=== PATIENT | female | born 1995 | race Caucasian/White ===

== ENCOUNTER 2016-08-15 12:39 | Emergency (ER) ==
[2016-08-15 12:46] VITALS: BP 144/68
[2016-08-15 13:11] LABS: URINE CULTURE PL NEEDED? NO; URINE SOURCE CLEAN CATCH
[2016-08-15 13:36] LABS: BILIRUBIN URINE NEGATIVE (NEGATIVE); BLOOD URINE 4+ (NEGATIVE); CLARITY CLEAR (CLEAR); COLOR YELLOW; GLUCOSE URINE NEGATIVE (NEGATIVE); LEUKOCYTES URINE NEGATIVE (NEGATIVE); NITRITE URINE NEGATIVE (NEGATIVE); PROTEIN URINE NEGATIVE (NEGATIVE); SP GRAVITY URINE 1.005; UROBILINOGEN URINE NORMAL
[2016-08-15 13:37] LABS: URINE EPITHELIAL CELLS >10 /HPF (<10); URINE RBC TNTC /HPF (<10)
--- NOTE | 2016-08-15 13:41 | PROVIDER DOCUMENTATION ---
HPI-Female /OB/Breast - General Source: reports: patient - History of Present Illness-Female /OB Does patient report she is ?: No Location of complaint: reports: LLQ Radiation: reports: none Severity in ED: reports: moderate Onset/Duration: reports: abrupt, 4-6 hours ago Timing: reports: still present Context/Activities at Onset: reports: none Vaginal Symptoms: reports: no symptoms Vaginal Bleeding Amount: None Urinary Symptoms: reports: hematuria Modifying Factors: worse with: palpation Associated Symptoms: reports: denies symptoms Similar Symptoms Previously?: Yes (Pt has seen hematuria before. LLQ pain is different from previous episodes ) Recently seen or treated by another doctor?: Yes (u/s to check for stones 2 weeks ago) <Davida Mak - Last Filed: 08/15/16 14:05> <Pradeep Barr - Last Filed: 08/15/16 14:11> - General Chief Complaint: Flank Pain Stated Complaint: BLOOD IN URINE Time Seen by Provider: 08/15/16 13:07 Allergies/Adverse Reactions: Patient Allergies Allergy/AdvReac Type Severity Reaction Status Date / Time No Known Allergies Allergy Verified 08/15/16 12:46 Home Medications: Home Medication List Medication Instructions Recorded Confirmed Last Taken Type Hydrocodone/APAP 5 mg/325 mg 1 - 2 tab PO Q6H PRN PRN #18 tablet 08/15/16 Unknown Rx [[place]-5] Promethazine [Phenergan] 1 - 2 tab PO Q6H PRN PRN #18 tablet 08/15/16 Unknown Rx - History of Present Illness-Female /OB Nature of Presenting Problem: 20 yo WF presents to ED with cc of LLQ pain and tenderness and hematuria since 1030 this morning. Pt has hx of chronic kidney stones and lithotripsy. Pt reports she had an ultrasound 2 weeks ago to check for stones as a routine procedure, and it was clear. Pt reports she is currently in the middle of her menstrual cycle. She denies nausea, vomiting, diarrhea, and constipation. She states that this is different from kidney stone episodes in that her pain is in the front instead of her back but that she is concerned it may be a stone. Upon arrival to ED, pt is alert and in no apparent distress. (Davida Mak) Review of Systems - Adult - REVIEW OF SYSTEMS - ADULT Constitutional: reports: no symptoms reported. denies: chills, fever Eyes: reports: no symptoms reported. denies: blurred vision, double vision Ears, Nose, Mouth & Throat: reports: no symptoms reported. denies: ear discharge, epistaxis Cardiovascular: reports: no symptoms reported. denies: edema, palpitations Respiratory: reports: no symptoms reported. denies: cough, shortness of breath Gastrointestinal: reports: abdominal pain (LLQ) Genitourinary: reports: hematuria (starting 1030 this morning). denies: flank pain Musculoskeletal: reports: no symptoms reported. denies: bone pain, joint pain Integumentary: reports: no symptoms reported. denies: hives, itching Neurological: reports: no symptoms reported. denies: dizziness/vertigo, numbness Psychiatric: reports: no symptoms reported. denies: anxiety, alcohol/drug dependence Endocrine: reports: no symptoms reported. denies: cold intolerance, heat intolerance Hematologic/Lymphatic: reports: no symptoms reported. denies: blood clots, lymphedema Allergic/Immunologic: reports: no symptoms reported. denies: allergic reactions , food allergy All Other Systems: Reviewed and Negative <Davida Mak - Last Filed: 08/15/16 14:05> Past History - Adult - PAST MEDICAL HISTORY-ADULT Review of Records: reports: Old Records Reviewed, Nursing Assessment Review, Medications Reviewed Genitourinary: reports: kidney stones - PRIOR SURGERIES/PROCEDURES Surgical/Procedure History: reports: other (lithotripsy) - IMMUNIZATION STATUS Childhood Immunizations: See Nurse Assessment Flu Vaccine: See Nurse Assessment <Davida Mak - Last Filed: 08/15/16 14:05> Physical Exam-General - PHYSICAL EXAM-ADULT Initial Vital Signs Reviewed: Yes - CONSTITUTIONAL General Appearance: appears well, alert, no apparent distress - EYES Eyes: PERRL/EOMI, pink conjunctivae - HEAD, EARS, NOSE, MOUTH & THROAT HENMT: normocephalic/atraumatic, moist mucous membranes - NECK Neck: non-tender, full range of motion, supple - RESPIRATORY Respiratory: chest non-tender, lungs clear, normal breath sounds - CARDIOVASCULAR Cardiovascular: normal peripheral pulses, regular rate, rhythm - GASTROINTESTINAL (ABDOMEN) Abdominal Exam: normal bowel sounds, soft, tenderness (LLQ) - GENITOURINARY Female Genitalia/Pelvic Exam: deferred Rectal Exam: deferred Hemoccult Exam: deferred - LYMPHATIC Lymphatic: no adenopathy - MUSCULOSKELETAL Back Exam: no vertebral tenderness, CVA tenderness (L side) Extremity: normal range of motion, non-tender, normal gait - SKIN Integumentary: normal color, normal turgor, warm/dry - NEUROLOGIC Neurologic: grossly normal, no motor/sensory deficits - PSYCHIATRIC Psych/Mental Status: normal mood/affect, normal thought content, normal thought process, oriented x 3 <Davida Mak - Last Filed: 08/15/16 14:05> Progress - CT/MRI 1 CT Study: Renal Stone Impression: Abnormal CT Results: 3 mm stone in proximal L ureter <Davida Mak - Last Filed: 08/15/16 14:05> <Prdaeep Barr - Last Filed: 08/15/16 14:11> - PLAN OF CARE/RESULTS Progress/Plan/Lab Results: Vital Signs - 24 hr 08/15/16 12:44 Temperature 97.8 F Pulse Rate 69 Respiratory 18 Rate Blood Pressure 144/68 O2 Sat by Pulse 100 Oximetry Orders Category Date Time Status RENAL STONE SEARCH [CT] Stat Exams 08/15/16 13:00 Taken TEST-URINE [PREG] Stat Lab 08/15/16 12:[address] W/POSS RFLX CULT [URINALYSIS] Stat Lab 08/15/16 12:50 Completed Laboratory Tests 08/15/16 08/15/16 12:50 12:50 Urine Source CLEAN CATCH Urine Color YELLOW Urine Clarity CLEAR Urine pH 8.0 Ur Specific [place] 1.005 Urine Protein NEGATIVE Urine Ketones NEGATIVE Urine Blood 4+ Urine Nitrite NEGATIVE Urine Bilirubin NEGATIVE Urine Urobilinogen NORMAL Urine Microscopic RBC TNTC A Urine WBC NEGATIVE Ur Epithelial Cells >10 A Urine Bacteria 1+ Urine Glucose NEGATIVE Urine Test NEGATIVE (Davida Mak) Departure <Davida Mak - Last Filed: 08/15/16 14:05> - Departure Time of Disposition Order: 14:08 Certified Medical Emergency: Emergent <Pradeep Barr - Last Filed: 08/15/16 14:11> - Departure DIAGNOSIS: Left ureteral calculus Disposition: HOME 01 Condition: Good Additional Instructions: ED Follow Up Instructions: You have been treated by a care provider in the Emergency Department. These instructions are being provided to you so you can have an understanding of how to care for yourself upon discharge. Upon discharge from the Emergency Department, you are responsible for making arrangements for follow-up care by a physician of your choice. Take all prescribed medications as directed. Return to the Emergency Department immediately for any new or worsening symptoms. You may call the Physician Referral phone number at [phone] to obtain a list of Physicians who are taking new patients. Prescriptions: Hydrocodone/APAP 5 mg/325 mg [[place]-5] 1 - 2 tab PO Q6H PRN PRN #18 tablet PRN Reason: Pain Promethazine [Phenergan] 1 - 2 tab PO Q6H PRN PRN #18 tablet PRN Reason: Vomiting Referrals: Burton Sy MD [Primary Care Provider] - Attestation - Scribe Verification/Attestation Scribe:: Daivda Mak Acting as Scribe for:: Pradeep Barr Scribe documention review:: This chart was documented by a scribe and accurately reflects the service the provider performed and the decisions made by the provider. - Physician/ ALAN Attestation Patient care was provided by Advanced Practice Provider:: No <Davida Mak - Last Filed: 08/15/16 14:05> Physician Attestation
--- NOTE | 2016-08-15 14:28 | Diag Imaging Result Document ---
PROCEDURE NAME: RENAL STONE SEARCH - 08/15/2016 CT ABDOMEN AND PELVIS WITHOUT ORAL OR INTRAVENOUS CONTRAST Dose reduction protocol. COMPARISON: None. FINDINGS: Normal spleen and adrenal glands. The gallbladder is partly contracted. No focal hepatic abnormality identified on this noncontrasted study. No inflammation about the pancreas or gallbladder. No right renal stone or right-sided hydronephrosis. There is a 3-mm stone in the proximal left ureter near the ureteropelvic junction. Mild dilatation to the renal pelvis. Normal aorta. No bowel obstruction. There is a 5-mm appendicolith. No inflammation about the appendix. No abscess. The urinary bladder is mildly distended and appears normal. Normal uterus and ovaries. IMPRESSION: 1. There is a 3-mm stone in the proximal left ureter with mild dilation of the renal pelvis. 2. 5-mm appendicolith, but no inflammation about the appendix. A preliminary report was given at 1:51 p.m.
== END 2016-08-15 14:21 | disposition home or self-care (01) ==
LOC: P.ED 12:39
DX: N20.1 Calculus of ureter (principal); R10.32 Left lower quadrant pain; R31.9 Hematuria, unspecified; R10.9 Unspecified abdominal pain; R10.814 Left lower quadrant abdominal tenderness; Z87.442 Personal history of urinary calculi
CPT/HCPCS: 74176; 81001; 81025